=== PATIENT | male | born 1990 | race African-American/Black ===

== ENCOUNTER → 2016-11-29 | Outpatient (CLI) | payer MEDICAID | LOC: OD 11:45 | PROVIDERS: ATTEND Physician Assistant | DX: M54.41 Lumbago with sciatica, right side (principal); M54.6 Pain in thoracic spine | CPT/HCPCS: 72070; 72110 ==

== ENCOUNTER 2020-01-07 06:21 | Emergency (ER) | payer MEDICAID ==
--- NOTE | 2020-01-07 06:43 | ER Document Report ---
HPI - HPI Time Seen by Provider: 01/07/20 06:35 Context: Patient is a 29 year old male that comes to the Emergency Department for chief complaint of sore throat. He states that symptoms started almost a week ago, initially with light sensitivity and an itchy throat, he denies headaches, stiff neck, or any current symptoms except for the sore throat. He denies fevers. He is able to eat without difficulty. He is taking qsbn-tru-hruubca medications, denies any diagnosed medical problems or daily medications. Past Medical History - General Information source: Patient - Social History Smoking Status: Never Smoker Frequency of alcohol use: None Drug Abuse: None Lives with: Family Family History: Reviewed & Not Pertinent Surgical Hx: Negative - Immunizations Immunizations up to date: Yes Hx Diphtheria, Pertussis, Tetanus Vaccination: Yes Vertical Provider Document - CONSTITUTIONAL General Appearance: WD/WN, No Apparent Distress - INFECTION CONTROL TRAVEL OUTSIDE OF THE [place] IN LAST 30 DAYS: No - HEENT HEENT: Atraumatic, Normocephalic. negative: Normal ENT Exam - Erythema and mild enlargement of both tonsils, no exudates, no peritonsillar abscess, normal uvula, patent airway. Mild nasal congestion. Mild postnasal drip. Unremarkable ears, unremarkable ENT exam otherwise. - NECK Neck: Other - Mild bilateral anterior cervical adenopathy - RESPIRATORY Respiratory: Breath Sounds Normal, No Respiratory Distress. negative: Wheezing - CARDIOVASCULAR Cardiovascular: Regular Rate, Regular Rhythm. negative: Tachycardia - GI/ABDOMEN Gastrointestinal: Abdomen Soft, Abdomen Non-Tender. negative: Abdomen Tender - BACK Back: Normal Inspection - MUSCULOSKELETAL/EXTREMETIES Musculoskeletal/Extremeties: MAEW, FROM, Non-Tender - NEURO Level of Consciousness: Awake, Alert, Appropriate Motor/Sensory: No Motor Deficit, No Sensory Deficit - DERM Integumentary: Warm, Dry, No Rash Course - Vital Signs Vital signs: Temp Pulse Resp BP Pulse Ox 98.3 F 65 16 145/93 H 97 01/07/20 06:27 01/07/20 06:27 01/07/20 06:27 01/07/20 06:27 01/07/20 06:27 Discharge - Discharge Clinical Impression: Sinus congestion Pharyngitis Qualifiers: Pharyngitis/tonsillitis etiology: unspecified etiology Qualified Code(s): J02.9 - Acute pharyngitis, unspecified Condition: Stable Disposition: HOME, SELF-CARE Additional Instructions: Your strep test is negative. This appears to be viral and should simply resolve. You have been treated with Decadron to help symptoms resolve faster. I do recommend the nasal spray and decongestant as well, consider fxld-qdx-gpteiid antihistamine such as cetirizine. You can take 600 mg of ibuprofen and 1000 mg of Tylenol together every 6 hours if needed for pain. Return if you worsen including spiking fevers, severe abdominal pain, difficulty swallowing or breathing, or any other concerning symptoms. Prescriptions: Fluticasone Propionate [Flonase Nasal [place] 50 Mcg/[place] 16 gm] 2 sprays NASL Q12 #1 inhaler Pseudoephedrine HCl [Sudafed 12 Hour] 120 mg PO Q12 PRN #14 tablet.er PRN Reason: Referrals: JANEL SANDOVAL PA-C [Primary Care Provider] - Follow up as needed
[2020-01-07] MEDS ORDERED: DEXAMETHASONE SOD PHOS INJ 10 MG/1 ML VIAL IM ONE (07:24)
[2020-01-07 07:43] VITALS: BP 143/85
== END 2020-01-07 07:43 | disposition home or self-care (01) ==
LOC: ER 06:21
DX: J02.9 Acute pharyngitis, unspecified (principal); R09.81 Nasal congestion; J35.1 Hypertrophy of tonsils; R09.82 Postnasal drip
CPT/HCPCS: 99283; 96372; 87070; 87880; J1100

== ENCOUNTER → 2020-06-06 | Outpatient (CLI) | payer MEDICAID ==
--- NOTE | 2020-06-06 16:21 | RADIOLOGY REPORT (SQ) ---
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 NUMBER OF VIEWS: Five views including obliques. TECHNIQUE: AP, lateral, oblique, and sacral radiographic images acquired of the lumbar spine. LIMITATIONS: None. FINDINGS: MINERALIZATION: Normal. SEGMENTATION: Normal. No transitional anatomy. ALIGNMENT: Normal. VERTEBRAE: Maintained height. No fracture or worrisome bone lesion. DISCS: Preserved height. No significant osteophytes or end plate irregularity. POSTERIOR ELEMENTS: Pedicles and facets are intact. No pars defect or posterior arch defects. HARDWARE: None in the spine. PARASPINAL SOFT TISSUES: Normal. PELVIS: Intact as visualized. No fractures or worrisome bone lesions. SI joints intact. OTHER: No other significant finding. IMPRESSION: NORMAL 5 VIEW LUMBAR SPINE. TECHNICAL DOCUMENTATION: JOB ID: [id number] 2010 [employer]- All Rights Reserved Reading location - IP/workstation name: [email or web address]
--- NOTE | 2020-06-06 16:22 | RADIOLOGY REPORT (SQ) ---
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 NUMBER OF VIEWS: Two views. TECHNIQUE: AP and lateral radiographic images acquired of the thoracic spine. LIMITATIONS: None. FINDINGS: MINERALIZATION: Normal. ALIGNMENT: Normal. No scoliosis. VERTEBRAE: No fracture or bone lesion. Maintained height, normal segmentation. DISCS: No significant loss of height or significant narrowing. No large osteophytes. HARDWARE: None in the spine. MEDIASTINUM AND SOFT TISSUES: Normal heart size and aortic contour. No soft tissue abnormality. VISUALIZED LUNG MCCALL: Clear. OTHER: No other significant finding. IMPRESSION: NO SIGNIFICANT RADIOGRAPHIC FINDING IN THE THORACIC SPINE. TECHNICAL DOCUMENTATION: JOB ID: [id number] 2010 [employer]- All Rights Reserved Reading location - IP/workstation name: [email or web address]
--- NOTE | 2020-06-06 17:16 | EKG REPORT ---
SEVERITY:- BORDERLINE ECG - SINUS ARRHYTHMIA, RATE 58-85 BORDERLINE T ABNORMALITIES, INFERIOR LEADS : Confirmed by: Trent Rivers MD 06-Jun-2020 17:15:05
== END ==
LOC: OD 15:26
PROVIDERS: ATTEND Nurse Practitioner Family
DX: M54.6 Pain in thoracic spine (principal); M54.5 Low back pain; I45.6 Pre-excitation syndrome
CPT/HCPCS: 72070; 72110; 93005; 93010

== ENCOUNTER 2020-10-18 10:37 | Emergency (ER) | payer MEDICAID ==
--- NOTE | 2020-10-18 11:01 | ER Document Report ---
ED Medical Screen (RME) - General Chief Complaint: Shortness Of Breath Stated Complaint: SHORTNESS OF BREATH Time Seen by Provider: 10/18/20 10:50 Primary Care Provider: KAROLINA SALDAÑA NP [Primary Care Provider] - Follow up as needed TRAVEL OUTSIDE OF THE [place] 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 Patient states that he notices the shortness of breath when he is working, not at rest. Reports lately he has had some chest pressure, denies any chest pain. Other than having WPW, denies any cardiac issues. patient report he has had chest p ressure for the same amount of time he has had the shortness of breath. Denies any radiation of his chest pressure. denies any numbness or tingling down arms or legs, denies any fevers or chills. Patient denies a history of asthma emphysema or smoking. 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 Has not tried any qzhd-saf-bnytqhn medications. States that the shortness of breath is becoming progressively worse. Follows with [facility] as his primary care provider. Denies any lightheadedness, dizziness, blurred vision, double vision, loss of vision, fatigue, ataxia, palpitations, etc. I have greeted and performed a rapid initial assessment of this patient. A comprehensive ED assessment and evaluation of the patient, analysis of test results and completion of the medical decision making process will be conducted by additional ED providers. Patient does not have a history of hypertension. His blood pressure is very elevated today. Does not take any everyday medications we will recheck a manual blood pressure. PHYSICAL EXAMINATION: GENERAL: Well-appearing, well-nourished and in no acute distress. HEAD: Atraumatic, normocephalic. EYES: Pupils equal round extraocular movements intact, conjunctiva are normal. NECK: Normal range of motion CV: s1, s2 regular LUNGS: No respiratory distress Musculoskeletal: Normal range of motion NEUROLOGICAL: Normal speech, normal gait. SKIN: Warm, Dry, normal turgor, no rashes or lesions noted. - Related Data Allergies/Adverse Reactions: No Known Allergies Allergy (Verified 10/18/20 10:54) Past Medical History Past Surgical History: Reports: Hx Cardiac Surgery - abaltion 2013 - Immunizations Immunizations up to date: Yes Hx Diphtheria, Pertussis, Tetanus Vaccination: Yes Physical Exam - Vital signs Vitals: Temp Pulse Resp BP Pulse Ox 98.0 F 73 20 204/113 H 99 10/18/20 10:46 10/18/20 10:46 10/18/20 10:46 10/18/20 10:46 10/18/20 10:46 Course - Vital Signs Vital signs: Temp Pulse Resp BP Pulse Ox 98.0 F 73 20 204/113 H 99 10/18/20 10:46 10/18/20 10:46 10/18/20 10:46 10/18/20 10:46 10/18/20 10:46 Doctor's Discharge - Discharge Referrals: KAROLINA SALDAÑA [employer] [Primary Care Provider] - Follow up as needed
[2020-10-18 11:57] LABS: ABSOLUTE EOSINOPHILS # (AUTO) 0.1 10^3/uL (0.0-0.6); ABSOLUTE LYMPHOCYTES (AUTO) 2.4 10^3/uL (0.5-4.7); ABSOLUTE MONOCYTES (AUTO) 0.6 10^3/uL (0.1-1.4); ABSOLUTE NEUT (AUTO) 2.8 10^3/uL (1.7-8.2); BASOPHILS % (AUTO) 0.6 % (0-2); HEMATOCRIT 45.1 % (37.9-51.0); HEMOGLOBIN 15.5 g/dL (13.5-17.0); LYMPHOCYTES % (AUTO) 40.8 % (13-45); MEAN CORPUSCULAR HEMOGLOBIN 30.4 pg (27.0-33.4); MEAN CORPUSCULAR HGB CONC 34.5 g/dL (32.0-36.0); MEAN CORPUSCULAR VOLUME 88 fl (80-97); MONOCYTES % (AUTO) 10.1 % (3-13); PLATELET COUNT 281 10^3/uL (150-450); RED BLOOD COUNT 5.12 10^6/uL (4.35-5.55); RED CELL DISTRIBUTION WIDTH 13.3 % (11.5-14.0); SEGMENTED NEUTROPHILS % (AUTO) 47.5 % (42-78); TOTAL CELLS COUNTED % (AUTO) 100 %; WHITE BLOOD COUNT 5.9 10^3/uL (4.0-10.5)
--- NOTE | 2020-10-18 12:17 | ER Document Report ---
ED General - General Chief Complaint: Breathing Difficulty Stated Complaint: SHORTNESS OF BREATH Time Seen by Provider: 10/18/20 10:50 Primary Care Provider: KAROLINA SALDAÑA NP [Primary Care Provider] - Follow up as needed Mode of Arrival: Ambulatory Information source: Patient TRAVEL OUTSIDE OF THE [place] IN LAST 30 DAYS: No - HPI Notes: Patient presents complaint of shortness of breath. He states has been short of breath for approximately 1 week. No known Covid virus exposures. He states he is had no significant cough. His shortness of breath is not worse any time of day or when lying flat. He states it is all the time. It is slightly worse with exertion and better with rest. 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 States he is never had any past history of elevated blood pressure. He states he did have a Parkinson White but had a ablation several years ago and has had no further problems. He denies any significant chest pain. He states he came in today because he was having some left-sided neck pain wanted to make sure that nothing was wrong concerned he has had shortness of breath for 1 month as well. No vomiting or diarrhea. - Related Data Allergies/Adverse Reactions: No Known Allergies Allergy (Verified 10/18/20 10:54) Past Medical History - General Information source: Patient - Social History Smoking Status: Never Smoker Chew tobacco use (# tins/day): No Frequency of alcohol use: None Drug Abuse: None Family History: Reviewed & Not Pertinent Patient has homicidal ideation: No Past Surgical History: Reports: Hx Cardiac Surgery - abaltion 2013 - Immunizations Immunizations up to date: Yes Hx Diphtheria, Pertussis, Tetanus Vaccination: Yes Review of Systems - Review of Systems Constitutional: denies: Chills, Fever Cardiovascular: denies: Chest pain, Palpitations Respiratory: Cough - Mild dry cough, Short of breath -: Yes All other systems reviewed and negative Physical Exam - Vital signs Vitals: Temp Pulse Resp BP Pulse Ox 98.0 F 73 20 204/113 H 99 10/18/20 10:46 10/18/20 10:46 10/18/20 10:46 10/18/20 10:46 10/18/20 10:46 Interpretation: Hypertensive - General General appearance: Appears well, Alert - HEENT Head: Normocephalic, Atraumatic Eyes: Normal Pupils: PERRL - Respiratory Respiratory status: No respiratory distress Chest status: Nontender Breath sounds: Normal Chest palpation: Normal - Cardiovascular Rhythm: Regular Heart sounds: Normal auscultation Murmur: No - Abdominal Inspection: Normal Distension: No distension Bowel sounds: Normal Tenderness: Nontender Organomegaly: No organomegaly - Back Back: Normal, Nontender - Extremities General upper extremity: Normal inspection, Nontender, Normal color, Normal ROM, Normal temperature General lower extremity: Normal inspection, Nontender, Normal color, Normal ROM, Normal temperature, Normal weight bearing. No: Salina's sign - Neurological Neuro grossly intact: Yes Cognition: Normal Orientation: AAOx4 Monty Coma Scale Eye Opening: Spontaneous [place] Coma Scale Verbal: Oriented [place] Coma Scale Motor: Obeys Commands [place] Coma Scale Total: 15 Speech: Normal Motor strength normal: LUE, RUE, LLE, RLE Sensory: Normal - Psychological Associated symptoms: Normal affect, Normal mood - Skin Skin Temperature: Warm Skin Moisture: Dry Skin Color: Normal Course - Re-evaluation Re-evalutation: 10/18/20 13:50 Patient states he has had 1 month of shortness of breath and then today developed some left neck pain 1 to come the hospital make sure things okay. His EKG does not show any evidence of ischemic changes. He has negative cardiac enzymes. He has no cardiomegaly. He has no elevated BNP. Chest x-ray is otherwise unremarkable. I think the patient can be safely discharged and follow-up as an outpatient with Dr. Mart. - Vital Signs Vital signs: Temp Pulse Resp BP Pulse Ox 98.0 F 73 20 146/92 H 99 10/18/20 10:52 10/18/20 10:46 10/18/20 10:46 10/18/20 12:13 10/18/20 10:46 - Laboratory Results Result Diagrams: 10/18/20 11:46 10/18/20 11:46 Laboratory Results Interpreted: 10/18/20 10/18/20 11:46 12:30 Total Protein 8.3 H Urine Ascorbic Acid 40 H Critical Laboratory Results Reviewed: No Critical Results - Radiology Results Critical Radiology Results Reviewed: No Critical Results - EKG Interpretation by Ak EKG shows normal: Sinus rhythm Rate: Normal - 74 Rhythm: NSR [place]/QRS: No: Right axis deviation, Left axis deviation Voltage: Consistent with LVH Discharge - Discharge Clinical Impression: Uncontrolled hypertension Condition: Stable Disposition: HOME, SELF-CARE Prescriptions: Amlodipine Besylate [Norvasc 2.5 mg Tablet] 2.5 mg PO DAILY #30 tablet Forms: Return to Work Referrals: AUGUSTINE MART MD [ACTIVE STAFF] - Follow up in 1 week (dr mart will call you to arrange follow up)
--- NOTE | 2020-10-18 12:25 | RADIOLOGY REPORT (SQ) ---
EXAM DESCRIPTION: CHEST SINGLE VIEW IMAGES COMPLETED DATE/TIME: 10/18/2020 12:11 pm REASON FOR STUDY: sob x1m, becoming worse. no asthma/no smoking COMPARISON: None. NUMBER OF VIEWS: One view. TECHNIQUE: Single frontal radiographic view of the chest acquired. LIMITATIONS: None. FINDINGS: LUNGS AND PLEURA: No opacities, masses or pneumothorax. No pleural effusion. MEDIASTINUM AND HILAR STRUCTURES: No masses. Contour normal. HEART AND VASCULAR STRUCTURES: Heart normal in size. Normal vasculature. BONES: No acute findings. HARDWARE: None in the chest. OTHER: No other significant finding. IMPRESSION: NO SIGNIFICANT RADIOGRAPHIC FINDING IN THE CHEST. TECHNICAL DOCUMENTATION: JOB ID: [id number] 2010 [employer]- All Rights Reserved Reading location - IP/workstation name: [email or web address]
[2020-10-18 12:29] LABS: ALBUMIN 4.5 g/dL (3.5-5.0); ALKALINE PHOSPHATASE 83 U/L (38-126); ANION GAP 6 (5-19); ASPARTATE AMINO TRANSFERASE 31 U/L (17-59); BILIRUBIN,DIRECT 0.1 mg/dL (0.0-0.4); BILIRUBIN,TOTAL 0.5 mg/dL (0.2-1.3); BLOOD UREA NITROGEN 14 mg/dL (7-20); CALCIUM 10.2 mg/dL (8.4-10.2); CARBON DIOXIDE 30 mmol/L (22-30); CHLORIDE 103 mmol/L (98-107); GLUCOSE 88 mg/dL (75-110); POTASSIUM 4.5 mmol/L (3.6-5.0); TOTAL PROTEIN 8.3 g/dL (6.3-8.2)
[2020-10-18 12:49] LABS: APPEARANCE,URINE CLEAR; BILIRUBIN,URINE NEGATIVE (NEGATIVE); COLOR,URINE YELLOW; GLUCOSE, URINE NEGATIVE (NEGATIVE); KETONES,URINE NEGATIVE (NEGATIVE); LEUKOCYTE ESTERASE,URINE NEGATIVE (NEGATIVE); NITRITE,URINE NEGATIVE (NEGATIVE); PROTEIN,URINE NEGATIVE (NEGATIVE); URINE SPECIFIC GRAVITY 1.024; UROBILINOGEN,URINE NEGATIVE mg/dL (<2.0)
[2020-10-18 14:19] VITALS: BP 157/102
--- NOTE | 2020-10-18 14:21 | EKG REPORT ---
SEVERITY:- ABNORMAL ECG - SINUS RHYTHM CONSIDER LEFT VENTRICULAR HYPERTROPHY BORDERLINE T ABNORMALITIES, INFERIOR LEADS : Confirmed by: Mary Ellen Mclean MD 18-Oct-2020 14:19:42
== END 2020-10-18 14:18 | disposition home or self-care (01) ==
LOC: ER 10:37
DX: I10 Essential (primary) hypertension (principal); R06.00 Dyspnea, unspecified; M54.2 Cervicalgia; Z20.828 Contact with and (suspected) exposure to other viral communicable diseases
CPT/HCPCS: 93005; 99285; 36415; 83735; 85025; 87635; 80053; 81001; 84484; 83880; 71045; 93010; C9803